=== PATIENT | female | born 1985 | race African-American/Black ===

== ENCOUNTER 2016-12-21 05:49 | Emergency (ER) | payer MEDICAID, OTHER ==
[~2016-12-21] VITALS: Ht 154.9 cm; Wt 118.0 kg
[~2016-12-21 05:49] MED LIST: FER325 PO; OMEP20CA16 PO; TRAM50TA2 PO
[2016-12-21 05:56] VITALS: Ht 154.9 cm; Wt 118.0 kg
[2016-12-21] MEDS ORDERED: SOD CHLORIDE 0.9% 1,000 ML IV STA (06:32)
[2016-12-21] MEDS ORDERED: KETOROLAC 30 MG INJ IV STA (06:32)
[2016-12-21] MEDS ORDERED: METOCLOPRAMIDE 10 MG INJ IV STA (06:32)
[2016-12-21] MEDS ORDERED: DIPHENHYDRAMINE 50 MG INJ IV STA (06:32)
[2016-12-21 07:08] LABS: URINE BLOOD (Dip) POC Negative (NEGATIVE)
[2016-12-21 07:14] LABS: BASOPHIL # 0.1 10^3/ul (0.0-0.1); BASOPHILS % 0.6 % (0.0-2.0); EOSINOPHILS # 0.2 10^3/ul (0.0-0.5); EOSINOPHILS % 1.8 % (0.0-7.0); LYMPHOCYTES # 1.8 10^3/ul (0.8-2.9); LYMPHOCYTES % 18.7 % (15.0-51.0); MEAN CORPUSCULAR HEMOGLOBIN 25.8 pg (29.0-33.0); MEAN CORPUSCULAR HGB CONC 32.3 g/dl (32.0-37.0); MEAN PLATELET VOLUME 8.4 fl (7.4-10.4); MONOCYTE # 0.5 10^3/ul (0.3-0.9); MONOCYTES % 5.2 % (0.0-11.0); NEUTROPHILS % 73.7 % (39.0-77.0); PLATELET COUNT 562 10^3/UL (140-440); RED BLOOD COUNT 4.63 10^6/ul (4.20-5.40); RED CELL DISTRIBUTION WIDTH 15.6 % (11.5-14.5); UNCORRECTED WBC 9.5 10^3/ul (4.8-10.8); WHITE BLOOD COUNT 9.5 10^3/ul (4.8-10.8)
[2016-12-21 07:16] LABS: CONDITION 1; LH ANALYZER COMMENTS 1
[2016-12-21 07:18] LABS: ALBUMIN 4.2 g/dl (3.3-4.9)
[2016-12-21 07:19] LABS: POTASSIUM 4.4 mmol/L (3.5-5.1)
[2016-12-21 07:21] LABS: CREATININE 0.83 mg/dl (0.44-1.00)
[2016-12-21 07:22] LABS: CALCIUM 9.1 mg/dl (8.4-10.2); TOTAL PROTEIN 8.4 g/dl (6.1-8.1)
[2016-12-21] MEDS ORDERED: FIORICET PO (08:07)
[2016-12-21 08:12] VITALS: BP 125/75; PULSE 74; RESP 19; TEMP 98.2
--- NOTE | 2016-12-21 08:14 | ERD ---
ER Documentation Chief Complaint Date/Time DATE: 12/21/16 TIME: 08:09 Chief Complaint Headache x1 week. hand twitching sometimes HPI 31-year-old female with a past medical history of hypertension presents the ED complaining of a headache that started intermittently 1 week ago. Reports that she woke up with a pounding mid headache and felt like she had left hand twitches. Rates the pain a 9 out of 10. Denies any fever, chills, cough, rhinorrhea, chest pain, shortness of breath, nausea, vomiting. Reports that her last menses was in October 2016. States that she is taking lisinopril for her hypertension. ROS All systems reviewed and are negative except as per history of present illness. Medications Home Meds Active Scripts Acetamin/Butalbital/Caffeine* (Fioricet*) [id number] Tab, 1 TAB PO Q6H Y for PAIN, #30 TAB Prov:SHOAIB QURESHI PA-C 12/21/16 Ferrous Sulfate* (Ferrous Sulfate*) 325 Mg Tabec, 325 MG PO TID, #60 TAB Prov:SHOAIB QURESHI PA-C 10/10/16 Tramadol HCl (Tramadol HCl) 50 Mg Tablet, 50 MG PO Q6 Y for PAIN, #10 TAB Prov:PERLA SANTA NP 09/26/16 Omeprazole* (Omeprazole*) 20 Mg Capsule.dr, 20 MG PO DAILY, #10 Prov:PERLA SANTA NP 09/26/16 Allergies Allergies: Coded Allergies: No Known Allergy (Unverified , 09/26/16) PMhx/Soc Medical and Surgical Hx: pt denies Surgical Hx History of Surgery: No Anesthesia Reaction: No Hx Neurological Disorder: No Hx Respiratory Disorders: No Hx Cardiac Disorders: Yes (HTN) Hx Psychiatric Problems: No Hx Miscellaneous Medical Probl: Yes (ANEMIA) Hx Alcohol Use: No Hx Substance Use: No Hx Tobacco Use: No Smoking Status: Never smoker Physical Exam Vitals Vital Signs Date Time Temp Pulse Resp B/P Pulse Ox O2 Delivery O2 Flow Rate FiO2 12/21/16 05:56 98.6 81 18 137/77 100 Physical Exam Const: [id number]-agimfwinc, well-nourished. In no acute distress. Head: Atraumatic, normocephalic Eyes: Normal Conjunctiva without injection. No purulent discharge. PERRLA. EOMI ENT: Normal external ear. Ear canal without erythema. Tympanic membrane pearly rahman without effusion or bulging. Nasal canal clear with normal turbinates. Moist oropharynx without tonsillar exudates. Non-erythematous pharynx. Uvula midline. No drooling. No trismus. Neck: No cervical midline tenderness. Full range of motion. No meningismus. No cervical lymphadenopathy. No JVD. Resp: Clear to auscultation bilaterally. No wheezing, rhonchi, rales, or crackles. No accessory muscle use. No retractions. Cardio: Regular rate and rhythm. No murmurs, rubs or gallops. Abd: Soft, non tender, non distended. Normal bowel sounds. No palpable masses. No rebound tenderness. No guarding. Negative McBurney's Point. Negative Ponce's Sign. Skin: Normal skin turgor. No petechiae or rashes Back: No midline tenderness. No CVA tenderness. Ext: No cyanosis, or edema. Distal pulses intact bilaterally. Neur: Awake and alert. Normal gait. Normal coordination. Cranial Nerves II- VII intact. Normal finger to nose. Muscle strength 5/5. Sensation intact. Psych: Normal Mood and Affect Result Diagram: 12/21/16 0645 12/21/16 0645 Results 24 hrs Laboratory Tests Test 12/21/16 06:45 12/21/16 07:08 Alanine Aminotransferase (ALT/SGPT) 38IU/L Albumin 4.2g/dl Albumin/Globulin Ratio 1.00 Alkaline Phosphatase 110IU/L Anion Gap 15 Aspartate Amino Transf (AST/SGOT) 28IU/L Basophils # 0.110^3/ul Basophils % 0.6% Blood Morphology Comment Blood Urea Nitrogen 13mg/dl Calcium Level 9.1mg/dl Carbon Dioxide Level 29mmol/L Chloride Level 102mmol/L Creatinine 0.83mg/dl Direct Bilirubin 0.00mg/dl Eosinophils # 0.210^3/ul Eosinophils % 1.8% Globulin 4.20g/dl Glucose Level 94mg/dl Hematocrit 37.0% Hemoglobin 12.0g/dl Indirect Bilirubin 0.0mg/dl Lymphocytes # 1.810^3/ul Lymphocytes % 18.7% Mean Corpuscular Hemoglobin 25.8pg Mean Corpuscular Hemoglobin Concent 32.3g/dl Mean Corpuscular Volume 80.0fl Mean Platelet Volume 8.4fl Monocytes # 0.510^3/ul Monocytes % 5.2% Neutrophils # 7.010^3/ul Neutrophils % 73.7% Nucleated Red Blood Cells # 0.010^3/ul Nucleated Red Blood Cells % 0.0/100WBC Platelet Count 94437^3/UL Potassium Level 4.4mmol/L Red Blood Count 4.6310^6/ul Red Cell Distribution Width 15.6% Sodium Level 142mmol/L Total Bilirubin 0.0mg/dl Total Protein 8.4g/dl White Blood Count 9.510^3/ul Bedside Urine Blood Negative Bedside Urine Glucose (UA) Negative Bedside Urine Ketones (LAB) Negative Bedside Urine Leukocyte Esterase (L Negative Bedside Urine Nitrite (LAB) Negative Bedside Urine Protein (LAB) Negative Bedside Urine pH (LAB) 7.0 Current Medications Medications (Trade) Dose Ordered Sig/Gino Route PRN Reason Start Time Stop Time Status Last Admin Dose Admin Sodium Chloride (NS) 1,000 ml @ 1,000 mls/hr Q1H STAT IV 12/21/16 06:32 12/21/16 07:31 DC 12/21/16 06:49 Metoclopramide HCl (Reglan) 10 mg ONCE STAT IV 12/21/16 06:32 12/21/16 06:35 DC 12/21/16 06:50 Ketorolac Tromethamine (Toradol) 30 mg ONCE STAT IV 12/21/16 06:32 12/21/16 06:35 DC 12/21/16 07:09 Diphenhydramine HCl (Benadryl) 25 mg ONCE STAT IV 12/21/16 06:32 12/21/16 06:35 DC 12/21/16 06:50 Procedures/MDM 31-year-old female with no significant past medical history presents to the ED complaining of a headache that started 1 week ago. Patient is afebrile and nontoxic-appearing. Patient has normal vital signs. A CBC, CMP, urine dip, urine , 1 L of normal saline, 30 mg IV ketorolac, 25 mg IV Benadryl, 10 mg IV Reglan was ordered to further treat and evaluate patient. CBC: No leukocytosis. No e/o of systemic infection. No e/o anemia. CMP: No e/o severe acidosis, alkalosis, renal failure, diabetic ketoacidosis, liver disease Lipase within normal limits. Urine: No leukocyte esterase, no nitrites, no hematuria. Urine : negative Patient reports that her pain feels better after being treated here with Normal saline, Ketorolac, Benadryl and Reglan. Patient symptoms are likely due to a nonspecific headache versus a migraine. There is low suspicion for cluster headache, intracranial bleed, subarachnoid hemorrhage, subdural hematoma, epidural hematoma, or other emergent conditions. Discharge medications: Fioricet Follow up with primary care physician in 1-2 days. Instructed patient to return to the ED sooner for any worsening symptoms. Patient's questions were answered. Patient understood and agreed with discharge plan. Patient discharged stable. Departure Diagnosis: Primary Impression: Headache Headache type: unspecified Headache chronicity pattern: unspecified pattern Intractability: not intractable Qualified Code: R51 - Nonintractable headache, unspecified chronicity pattern, unspecified headache type Condition: Stable Patient Instructions: Headache, Unspecified Referrals: [facility] YOU HAVE RECEIVED A MEDICAL SCREENING EXAM AND THE RESULTS INDICATE THAT YOU DO NOT HAVE A CONDITION THAT REQUIRES URGENT TREATMENT IN THE EMERGENCY DEPARTMENT. FURTHER EVALUATION AND TREATMENT OF YOUR CONDITION CAN WAIT UNTIL YOU ARE SEEN IN YOUR DOCTORS OFFICE WITHIN THE NEXT 1-2 DAYS. IT IS YOUR RESPONSIBILITY TO MAKE AN APPOINTMENT FOR FOLOW-UP CARE. IF YOU HAVE A PRIMARY DOCTOR --you should call your primary doctor and schedule an appointment IF YOU DO NOT HAVE A PRIMARY DOCTOR YOU CAN CALL OUR PHYSICIAN REFERRAL HOTLINE AT IF YOU CAN NOT AFFORD TO SEE A PHYSICIAN YOU CAN CHOSE FROM THE FOLLOWING [facility] [address] [facility] [address] [facility] [address] [facility] [address] [facility] [address] [facility] [facility]. [address] [facility] YOU HAVE RECEIVED A MEDICAL SCREENING EXAM AND THE RESULTS INDICATE THAT YOU DO NOT HAVE A CONDITION THAT REQUIRES URGENT TREATMENT IN THE EMERGENCY DEPARTMENT. FURTHER EVALUATION AND TREATMENT OF YOUR CONDITION CAN WAIT UNTIL YOU ARE SEEN IN YOUR DOCTORS OFFICE WITHIN THE NEXT 1-2 DAYS. IT IS YOUR RESPONSIBILITY TO MAKE AN APPOINTMENT FOR FOLOW-UP CARE. IF YOU HAVE A PRIMARY DOCTOR --you should call your primary doctor and schedule and appointment IF YOU DO NOT HAVE A PRIMARY DOCTOR YOU CAN CALL OUR PHYSICIAN REFERRAL HOTLINE AT . IF YOU CAN NOT AFFORD TO SEE A PHYSICIAN YOU CAN CHOSE FROM THE FOLLOWING [facility] INSTITUTIONS: [facility] [address] [place] [address] [facility] [address] [place] [address] [facility] [address] [place] [address] [facility] URGENT CARE/SPECIALTIES Additional Instructions: FOLLOW UP WITH YOUR PRIMARY CARE PHYSICIAN TOMORROW.Return to this facility if you are not improving as expected. SHOAIB QURESHI PA-C Dec 21, 2016 08:14
== END 2016-12-21 08:14 | disposition home or self-care (01) ==
LOC: E/R 05:49 → FTE 08:14
DX: R51 Headache (principal); I10 Essential (primary) hypertension
CPT/HCPCS: 80053; 81003; 85025; J1200; J1885; J2765; J7030; 36415; 96374; 96375